=== PATIENT | female | born 2000 | race African-American/Black ===

== ENCOUNTER 2023-04-08 21:10 | Emergency (ER) | payer OTHER, SELFPAY ==
[2023-04-08 21:16] VITALS: BP 153/83; PULSE 83; RESP 16; TEMP 36.6; O2SAT 100
--- NOTE | 2023-04-08 23:46 | ED.GENADULT ---
HPI - General Adult General Chief complaint: Headache Stated complaint: headache/ringing in right ear/sinus pressure Time Seen by Provider: 04/08/23 22:41 Source: patient Mode of arrival: ambulatory Limitations: no limitations History of Present Illness HPI narrative: This is a 22-year-old female who presents to the ED with chief complaint of headache and sinus pressure for the past 6 months. Reports that when she leans down and feels like her head becomes very off balance and that the congestion is causing this. Reports occasional sensitivity to light and headache and has been told in the past that she has migraines. also endorses occasional postnasal drainage. Denies fevers, chills, cough, Numbness, weakness, vision change. Related Data Allergies Allergy/AdvReac Type Severity Reaction Status Date / Time Shrimp Allergy Unknown Nausea and Uncoded 04/08/23 21:11 Vomiting Review of Systems Review of Systems: All systems as dictated in HPI Exam Narrative: GENERAL: Well-appearing, well-nourished, and in no acute distress. HEAD: Normocephalic, atraumatic. EYES: PERRLA and EOMI. ENT: Bilateral TMs with effusion but no erythema or bulging. Nares clear, no rhinorrhea or epistaxis. Mucous membranes moist. Oropharynx without tonsillar hypertrophy exudate or other lesions. NECK: Supple. No adenopathy or masses. CHEST: No respiratory distress. Clear to auscultation. No wheezes rales or rhonchi HEART: Regular rate and rhythm. No murmur heard. Normal peripheral pulses. ABDOMEN: Soft, nontender, nondistended, normal active bowel sounds. MSK: Normal range of motion. No edema. SKIN: Warm, dry, no rash. NEURO: Alert and oriented x3. No focal deficits. PSYCH: Normal mood and affect. Course Vital Signs Vital signs: Vital Signs Temperature 97.9 F 04/08/23 21:16 Pulse Rate 83 04/08/23 21:16 Respiratory Rate 16 04/08/23 21:16 Blood Pressure 153/83 H 04/08/23 21:16 Pulse Oximetry 100 04/08/23 21:16 Oxygen Delivery Room Air 04/08/23 21:16 Temperature 97.9 F 04/08/23 21:16 Pulse Rate 83 04/08/23 21:16 Respiratory Rate 16 04/08/23 21:16 Blood Pressure 153/83 H 04/08/23 21:16 Pulse Oximetry 100 04/08/23 21:16 Oxygen Delivery Room Air 04/08/23 21:16 Medical Decision Making [facility] Narrative Medical decision making narrative: This is a 22-year-old female who presents to the ED with for chief complaint of 6 months of headache and sinus congestion. Vitals are normal. Exam is benign. Clinically symptoms are consistent with sinusitis. She may also have some migraine. Shared decision making to treat the sinusitis with antibiotic. She is electing to forego migraine treatment or workup here. Pt will be discharged in stable condition. Return precautions given and supportive measures discussed. Pt is understanding and agreeable with plan for discharge and follow-up with PCP. Vital Signs Vital Signs: Vital Signs Temperature 97.9 F 04/08/23 21:16 Pulse Rate 83 04/08/23 21:16 Respiratory Rate 16 04/08/23 21:16 Blood Pressure 153/83 H 04/08/23 21:16 Pulse Oximetry 100 04/08/23 21:16 Oxygen Delivery Room Air 04/08/23 21:16 Temperature 97.9 F 04/08/23 21:16 Pulse Rate 83 04/08/23 21:16 Respiratory Rate 16 04/08/23 21:16 Blood Pressure 153/83 H 04/08/23 21:16 Pulse Oximetry 100 04/08/23 21:16 Oxygen Delivery Room Air 04/08/23 21:16 Discharge Plan Discharge Clinical Impression: Sinusitis Patient Disposition: Home, Self-Care Condition: Stable Instructions: Antibiotic Form Additional Instructions: Your exam today is reassuring. You likely have some sinus infection going on. Please take medications as prescribed. If you have any new or worsening symptoms please return to the ER for further evaluation. Prescriptions: New naproxen 500 mg tablet 500 mg PO BID PRN (Reason: pain) Qty: 30 0RF fluticason
[2023-04-09] MEDS: ACETAMINOPHEN 500 MG TABLET 1000 MG PO (00:07)
[2023-04-09] MEDS: IBUPROFEN 600 MG TABLET PO (00:07)
[2023-04-09] MEDS: DOXYCYCLINE HYCLATE 100 MG TABLET PO (00:08)
== END 2023-04-09 00:15 | disposition home or self-care (01) ==
PROVIDERS: Emergency Provider Physician Assistant
DX: J32.9 Chronic sinusitis, unspecified (principal)
CPT/HCPCS: 99283; A9270